=== PATIENT | female | born 1945 | race Caucasian/White ===

== ENCOUNTER → 2017-08-22 16:40 | Outpatient (CLI) | payer MEDICARE, OTHER | END | disposition home or self-care (01) | LOC: D.MAMMO 15:30 | DX: Z12.31 Encounter for screening mammogram for malignant neoplasm of breast (principal) ==

== ENCOUNTER 2018-05-15 23:39 | Emergency (ER) | payer MEDICARE, OTHER ==
[~2018-05-15] VITALS: Ht 157.5 cm; Wt 52.3 kg
[2018-05-15 23:44] VITALS: BP 190/90; Ht 157.5 cm; Wt 52.3 kg
[2018-05-15] MEDS ORDERED: RIOMET500 MG/5 M (23:46)
[2018-05-15] MEDS ORDERED: XANAX0.25 MG (23:46)
[2018-05-16] MEDS ORDERED: BACTRIM DS TABL1 TAB PO (00:40)
== END 2018-05-16 00:57 | disposition home or self-care (01) ==
LOC: D.ER 23:39
DX: S80.12XA Contusion of left lower leg, initial encounter (principal); W20.8XXA Other cause of strike by thrown, projected or falling object, initial encounter; Y93.89 Activity, other specified; Y92.019 Unspecified place in single-family (private) house as the place of occurrence of the external cause

== ENCOUNTER 2020-04-27 18:14 | Inpatient (IN) | payer MEDICARE, OTHER ==
[~2020-04-27] VITALS: Ht 157.5 cm; Wt 54.4 kg
[~2020-04-27 18:14] MED LIST: BACTRIM DS TABL1 TAB PO; RIOMET500 MG/5 M; XANAX0.25 MG
[2020-04-27 19:50] LABS: HEMATOCRIT 33.9 % (36.0-48.0); HEMOGLOBIN 10.8 g/dL (12-16); LYMPHOCYTES 20.2 % (15-50); MCH 26.3 pg (26.0-34.0); MCHC 31.9 g/dL (31.0-37.0); MCV 82.5 fL (80.0-100.0); MEAN PLATELET VOLUME 9.6 fL (7.4-10.4); NEUTROPHILS 72.7 % (40-80); RBC 4.11 10x6/uL (4.00-5.40); RDW 14.2 % (11.5-14.5); WBC 8.5 10x3/uL (4.8-10.8)
[2020-04-27 19:51] LABS: PLATELET COUNT 321 10x3/uL (130-400)
[2020-04-27 20:08] LABS: ANION GAP 12.3 mmol/L (8-16); CALCIUM 8.9 mg/dL (8.5-10.1); CARBON DIOXIDE 23.7 mmol/L (21.0-32.0); CREATININE - SERUM 0.9 mg/dL (0.6-1.3)
[2020-04-27 20:15] LABS: ALBUMIN 3.3 g/dL (3.4-5.0); BILIRUBIN - TOTAL 0.44 mg/dL (0.2-1.3); C-REACTIVE PROTEIN 6.1 mg/dL (0.0-0.9); PROTEIN - SERUM 7.7 g/dL (6.4-8.2)
[2020-04-27 21:05] LABS: ERYTHROCYTE SEDIMENTATION RATE 57 mm/hr (0-30)
[2020-04-27 23:28] VITALS: BP 164/74
[2020-04-28] VITALS (12 sets, daily range): BP systolic 128–159; BP diastolic 55–82; BMI 22.0
--- NOTE | 2020-04-28 00:05 | NUR ---
PT ARRIVED ON UNIT VIA WHEELCHAIR, ESCORTED BY ER NURSE. POSITIONED IN BED FOR COMFORT. IV TO LEFT AC PULLED OUT AND LEAKING WHEN FLUSHED...REMOVED WITH CATHETER TIP INTACT. RE-SITED TO LEFT AC USING 20 GUAGE CATHETER. IV FLUIDS STARTED AT 100 ML/HR PER ORDER.
[2020-04-28] MEDS ORDERED: METFORMIN HCL500 M1 PO (00:20)
--- NOTE | 2020-04-28 00:35 | NUR ---
ADMISSION ASSESSMENT AND HISTORY COMPLETE.
[2020-04-28 06:40] LABS: INR 1.01 (0.85-1.17); PROTIME 13.2 SECONDS (11.6-15.0)
[2020-04-28 06:43] LABS: CALC OSMOLALITY 276 mosm/kg (275-300); CALCIUM 8.4 mg/dL (8.5-10.1); CARBON DIOXIDE 24.1 mmol/L (21.0-32.0); CHLORIDE - SERUM 107 mmol/L (98-107); GLUCOSE 105 mg/dL (74-106); POTASSIUM - SERUM 3.2 mmol/L (3.5-5.1); SODIUM 139 mmol/L (136-145); UREA NITROGEN 11 mg/dL (7-18)
[2020-04-28 06:44] LABS: CREATININE - SERUM 0.6 mg/dL (0.6-1.3); eGFR NON AFRICAN AMERICAN > 90 mL/min (90-120)
[2020-04-28 06:52] LABS: HEMATOCRIT 29.9 % (36.0-48.0); HEMOGLOBIN 9.7 g/dL (12-16); MCH 26.9 pg (26.0-34.0); MCHC 32.4 g/dL (31.0-37.0); MCV 82.8 fL (80.0-100.0); MEAN PLATELET VOLUME 10.6 fL (7.4-10.4); RBC 3.61 10x6/uL (4.00-5.40); RDW 14.1 % (11.5-14.5)
[2020-04-28 07:00] LABS: PLATELET COUNT 239 10x3/uL (130-400); WBC 6.2 10x3/uL (4.8-10.8)
--- NOTE | 2020-04-28 20:00 | NUR ---
PT LYING IN BED SLEEPING WITHOUT DISTRESS, AWAKENS TO VERBAL STIMULI. DENIES PAIN OR NEEDS. VERY SLEEPY AND FALLS BACK ASLEEP QUICKLY. IV LEFT HAND INFUSING NS @ 75. RIGHT HAND PROPPED ON PILLOW, DRESSING CDI. CL IN REACH, WILL CTM
--- NOTE | 2020-04-28 23:30 | NUR ---
PT SITTING UP IN BED WITHOUT DISTRESS. WOKE UP SLIGHTLY TO DRINK SOME TEA. QUICKLY BACK ASLEEP. DENIED NEEDS. CL IN REACH, WILL CTM
[2020-04-29] VITALS: BP 132/60
--- NOTE | 2020-04-29 03:00 | NUR ---
WOKE PT UP TO TRY AND GET HER TO GO TO BATHROOM. PT STATES SHE DOES NOT NEED TO AT THIS TIME AND SHE WANTS TO SLEEP. STATES SHE WILL GET UP LATER AND GO. TOLD PT SHE NEEDED TO GO BECAUSE SHE HAS NOT BEEN UP SINCE SURGERY OR WE WILL HAVE TO IN AND OUT CATH HER. PT REFUSED AGAIN STATING SHE WOULD TRY LATER
[2020-04-29 04:00] VITALS: BP 124/55
[2020-04-29 05:47] LABS: ANION GAP 10.9 mmol/L (8-16); CALCIUM 7.7 mg/dL (8.5-10.1); CARBON DIOXIDE 22.8 mmol/L (21.0-32.0)
[2020-04-29 06:28] LABS: CREATININE - SERUM 0.9 mg/dL (0.6-1.3); POTASSIUM - SERUM 3.7 mmol/L (3.5-5.1)
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
--- NOTE | 2020-04-29 07:29 | OP ---
PATIENT NAME: AISHA GREENWOOD MEDICAL RECORD: [id number] :45 LOCATION:D.MS [facility]2218 ADMISSION DATE:04/27/20 SURGEON: NICHOLAS CARDOZO DO DATE OF OPERATION: 04/28/2020 PROCEDURE PERFORMED: Right middle finger incision and debridement. PREOPERATIVE DIAGNOSIS: Right middle finger infection. POSTOPERATIVE DIAGNOSIS: Right middle finger infection. INDICATIONS: Ms. Greenwood is a 74-year-old female who showed up to the ER last night with a swollen right middle finger. She is diabetic, did not know how it got that way. She was admitted overnight and put on IV antibiotics. I saw her today and told her she needed an I&D. I was explaining to her the risks and benefits of the procedure including infection, bleeding, damage to nerves and vessels in the area, loss of the digit and she has signed the consent. SURGEON: Nicholas Cardozo DO DESCRIPTION OF PROCEDURE: The patient was taken to the operative suite, laid in supine position, given general anesthetic, LMA was placed. The right upper extremity was then prepped and draped in sterile fashion. A time-out was performed and everyone was in agreement with the correct side, site, patient, and procedure. I made an incision over the radial aspect at the midline of the ring finger right at the PIP joint. There is a large abscess collection there. Purulent fluid came out as soon as I made the incision. I then went dorsal and volar with the [place], freed up. I then made an incision on the ulnar side more distal to open it up more and then did a Branden-type incision on the volar aspect, opening up the flexor tendon sheath to debride and irrigate all of that. All of that was irrigated. I then closed with 4-0 Monocryl in a simple fashion loosely closed and dressed with Adaptic, 4 x 4's, Kerlix, and an Heriberto wrap. I did take cultures when it was opened up. She was then awakened and taken to recovery in stable condition. I did a digital block with 8 mL of 0.25% Marcaine with epinephrine prior to closing. She was then taken to recovery in stable condition. ESTIMATED BLOOD LOSS: Minimal. COMPLICATIONS: None. NTS:[id number] Voice Confirmation ID: [id number] DOCUMENT ID: [id number] NICHOLAS CARDOZO DO at 0729 CC: [id number] DICTATION DATE: 04/28/20 1543 BRUSH HEAD MAKER: 04/28/20 2251 ADM IN [place] [id number] [place] [id number]
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
[2020-04-29 09:07] VITALS: BP 136/63
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
[2020-04-29 12:50] VITALS: BP 112/46
--- NOTE | 2020-04-29 13:00 | NUR ---
PATIENT RESTING QUIETLY IN BED EYES CLOSED. CALL LIGHT WITHIN REACH.
[2020-04-29 14:11] VITALS: Ht 157.5 cm; Wt 54.4 kg
[2020-04-29 16:45] VITALS: BP 131/64
--- NOTE | 2020-04-29 18:00 | NUR ---
PATIENT IN BED WITH IV INTACT. NO COMPLAINTS. FRIEND AT BEDSIDE. DRESSING CDI. CALL LIGHT WITHIN REACH.
[2020-04-29 20:00] VITALS: BP 131/59
--- NOTE | 2020-04-29 20:00 | NUR ---
PT SITTING UP IN BED WITHOUT DISTRESS, AOX4. FRIEND AT BEDSIDE. IV LEFT WRIST INFUSING NS @ 100. DENIES NEEDS AT THIS TIME. CL IN REACH, WILL CTM
[2020-04-30] VITALS: BP 131/55
[2020-04-30 04:00] VITALS: BP 144/55
[2020-04-30 10:31] VITALS: BP 166/65
[2020-04-30 13:20] VITALS: BP 147/72
[2020-04-30 17:38] VITALS: BP 154/54
--- NOTE | 2020-04-30 19:30 | NUR ---
PT UP WALKING AROUND ROOM. REQUESTED AND PROVIDED MORE BRIEFS. CHANGED LINENS ON BED WHILE PT WAS IN BATHROOM. RIGHT HAND MIDDLE FINGER INCISION OPEN TO AIR, SUTURES INTACT. DENIES OTHER NEEDS. CL IN REACH, WILL CTM
[2020-04-30 20:00] VITALS: BP 198/78
[2020-05-01 04:00] VITALS: BP 130/73
[2020-05-01 09:47] VITALS: BP 193/74
[2020-05-01 13:13] VITALS: BP 154/53
[2020-05-01 17:09] VITALS: BP 160/69
[2020-05-01 20:44] VITALS: BP 137/49
[2020-05-02 00:48] VITALS: BP 132/56
[2020-05-02 04:00] VITALS: BP 135/64
[2020-05-02 10:08] VITALS: BP 125/60
[2020-05-02 12:00] VITALS: BP 134/55
[2020-05-02 16:00] VITALS: BP 138/67
[2020-05-02 20:00] VITALS: BP 152/55
--- NOTE | 2020-05-02 20:00 | NUR ---
ASSUMED CARE OF PATIENT AT 1900, PATIENT AWAKE RESTING QUIETLY, NO DISTRESS NOTED, PATIENT C/O DISCOMFORT TO RIGHT MIDDLE FINGER, INCISION C/D/I, SUTURES, TIFFANY, ASSISTED PATIENT TO BR, PATIENT TOLERATED WELL, WILL CONTINUE TO MONITOR PATIENT, CALL LIGHT WITHIN REACH
[2020-05-03] VITALS: BP 140/45
[2020-05-03 04:00] VITALS: BP 165/57
[2020-05-03 05:02] LABS: BASOPHILS 0.4 % (0-2); EOSINOPHILS 6.2 % (0-7); HEMATOCRIT 27.8 % (36.0-48.0); HEMOGLOBIN 8.8 g/dL (12-16); IMMATURE GRANULOCYTES 0.6 % (0-5); LYMPHOCYTES 30.9 % (15-50); MCH 26.1 pg (26.0-34.0); MCHC 31.7 g/dL (31.0-37.0); MCV 82.5 fL (80.0-100.0); MEAN PLATELET VOLUME 9.8 fL (7.4-10.4); MONOCYTES 10.1 % (2-11); NEUTROPHILS 51.8 % (40-80); PLATELET COUNT 278 10x3/uL (130-400); RBC 3.37 10x6/uL (4.00-5.40); RDW 14.5 % (11.5-14.5); WBC 5.3 10x3/uL (4.8-10.8)
[2020-05-03 05:19] LABS: CALC OSMOLALITY 279 mosm/kg (275-300); CALCIUM 8.3 mg/dL (8.5-10.1); CARBON DIOXIDE 26.1 mmol/L (21.0-32.0); CHLORIDE - SERUM 108 mmol/L (98-107); CREATININE - SERUM 0.7 mg/dL (0.6-1.3); GLUCOSE 99 mg/dL (74-106); SODIUM 140 mmol/L (136-145); UREA NITROGEN 14 mg/dL (7-18); eGFR NON AFRICAN AMERICAN 87 mL/min (90-120)
--- NOTE | 2020-05-03 08:51 | NUR ---
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
[2020-05-03 09:04] VITALS: BP 153/55
[2020-05-03 12:00] VITALS: BP 151/58
[2020-05-03 16:00] VITALS: BP 123/94
--- NOTE | 2020-05-03 16:00 | NUR ---
SPENT MUCH OF DAY SLEEPING, CONT TO MONITOR WOUND HEALING
--- NOTE | 2020-05-03 19:25 | NUR ---
ASSUMED CARE OF PATIENT AT 1900, PATIENT RESTING QUIETLY WITH EYES OPEN, NO DISTRESS NOTED, PATIENT TALKS TO SELF, HL'D, DENIES NEEDS AT THIS TIME, WILL CONTINUE TO MONITOR PATIENT, CALL LIGHT WITHIN REACH
[2020-05-03 20:00] VITALS: BP 136/40
[2020-05-04] VITALS: BP 140/56
[2020-05-04 04:00] VITALS: BP 138/62
--- NOTE | 2020-05-04 05:37 | NUR ---
IV INFILTRATED, RESTARTED TO LEFT HAND 22G, GOOD BLOOD RETURN AND FLUSH, IV INFUSING WITHOUT COMPLICATIONS, WILL CONTINUE TO MONITOR PATIENT, CALL LIGHT WITHIN REACH
--- NOTE | 2020-05-04 07:05 | NUR ---
A&O RESTING IN BED WITH EYES OPEN. NO C/O PAIN. NO S/S OF ACUTE DISTRESS NOTED. UP AD TIKA. 10 SUTURES TO RIGHT HAND MIDDLE FINGER, OPEN TO AIR. IV TO LEFT HAND, SL. SITE PATENT WITHOUT REDNESS OR SWELLING. DENIES ANY NEEDS AT THIS TIME. CALL LIGHT IN REACH. WILL CONTINUE TO MONITOR.
[2020-05-04] MEDS ORDERED: HYDROCODON-ACE1 EA10 PO (07:36)
[2020-05-04 09:07] VITALS: BP 169/53
--- NOTE | 2020-05-04 10:59 | MORECARE ---
CASE MANAGEMENT DISCHARGE SUMMARY PATIENT: AISHA VELA UNIT: [id number] ADM DATE: 04/27/20 AGE: 74 : 45 SEX: F ROOM/BED: D.2218 AUTHOR: JAMMIE EL PHYSICIAN: REFERRING PHYSICIAN: RISA BOURNE MD DATE OF SERVICE: 05/04/20 Discharge Plan Patient Name: AISHA VELA Facility: [facility]:[place] : 1945 Planned Disposition: Home or Self Care Anticipated Discharge Date: Discharge Date: Expected LOS: Initial Reviewer: [email or web address] Initial Review Date: 04/28/2020 Generated: 05/04/20 11:59 am Comments DCP- Discharge Planning Updated by [id number]: Inna Valentine on 05/04/20 9:[address] Patient Name: AISHA VELA Admission Status: ER Accout number: [id number] Admission Date: 04-27-2020 : 1945 Admission Diagnosis:TRAUMATIC COMPARTMENT SYNDROME OF R UP EXTREM, INIT Attending: RISA BOURNE Current LOS: 7 Anticipated DC Date: Planned Disposition: Home or Self Care Primary Insurance: MEDICARE A & B Discharge Planning Comments: CM met with patient to complete initial dc planning assessment. CM educated patient on the CM role and verbal consent given by patient to complete assessment. Patient lives at home alone where she states she is independent with her care. At discharge patient plans to return home and feels this is a safe discharge. CM discussed availability of home health, rehab services, and medical equipment. She does not have a pcp, she stated that she is working on getting a new one. She did have someone living with her, but they moved out. She has a daughter Larissa who lives in [place] and will help her if needed. She stated a girl name Coco ([phone]) will be her tank truck driver home, but she can't get a hold of her at this time. She states her home is safe to discharge. IMM served and explained. Patient denied known discharge needs at this time. CM will continue to follow and will assist as needed with dc plans/needs. Compensation Vice President: Inna Valentine DCPIA - Discharge Planning Initial Assessment Updated by [email or web address]: Inna Valentine on 05/04/20 10:54 am * Is the patient Alert and Oriented? Yes * How many steps to enter\exit or inside your home? * PCP NONE * Pharmacy [facility] IN [place] * Preadmission Environment Home Alone * ADLs Independent * Equipment None * List name and contact numbers for known caregivers / representatives who currently or will assist patient after discharge: LARISSA AVITIA [phone] COCO ( BONE DENSITY TECHNICIAN) [phone] * Verbal permission to speak to the caregivers and representatives has been obtained from the patient. N/A * Community resources currently utilized None * Additional services required to return to the preadmission environment? No * Can the patient safely return to the preadmission environment? Yes * Has this patient been hospitalized within the prior 30 days at any hospital? No Coverage Notice Reviewer: [id number] - Inna Valentine Notice Issued Date-Time: 05/04/2020 10:50 Notice Type: IM Discharge Notice Notice Delivered To: Patient Relationship to Patient: Plan Manager Name: Delivery Method: HAND - Hand Delivered Pilar Days: Prior Verbal Notification: Recipient Understood Notice: Yes Recipient Signature: Yes Med Rec Note Co-signed by Attending: Coverage Notice Comment: Patient Name: AISHA VELA Page [phone] at 1059 All edits/amendments must be made on the electronic document DICTATION DATE: 05/04/20 1059 TELECOMMUNICATION OPERATOR: BERTA 05/04/20 1059 RPT#: [id number] DC DATE: STATUS: ADM IN [place] [address] [place] [address] END OF REPORT
[2020-05-04 12:34] VITALS: BP 167/54
--- NOTE | 2020-05-04 13:31 | NUR ---
I have reviewed this patient and I concur with the Shift Assessment completed by the Licensed Practical Nurse today this shift.
--- NOTE | 2020-05-04 15:37 | MORECARE ---
CASE MANAGEMENT DISCHARGE SUMMARY PATIENT: AISHA VELA UNIT: [id number] ADM DATE: 04/27/20 AGE: 74 : 45 SEX: F ROOM/BED: D.2218 AUTHOR: SIENNA,JAMMIE PHYSICIAN: REFERRING PHYSICIAN: RISA BOURNE MD DATE OF SERVICE: 05/04/20 Discharge Plan Patient Name: AISHA VELA Facility: [facility]:[place] : 1945 Planned Disposition: Home or Self Care Anticipated Discharge Date: Discharge Date: Expected LOS: Initial Reviewer: [email or web address] Initial Review Date: 04/28/2020 Generated: 05/04/20 4:37 pm Comments DCP- Discharge Planning Updated by [email or web address]: Inna Valentine on 05/04/20 2:[address] PATIENT HAS GOT AHOLD OF HER NEIGHBOR JASSON AND HE IS ON HIS WAS TO PICK HER UP SHE CAN GT INTO HER HOME DCP- Discharge Planning Updated by [email or web address]: Inna Valentine on 05/04/20 9:[address] Patient Name: AISHA VELA Admission Status: ER Accout number: [id number] Admission Date: 04-27-2020 : 1945 Admission Diagnosis:TRAUMATIC COMPARTMENT SYNDROME OF R UP EXTREM, INIT Attending: RISA BOURNE Current LOS: 7 Anticipated DC Date: Planned Disposition: Home or Self Care Primary Insurance: MEDICARE A & B Discharge Planning Comments: CM met with patient to complete initial dc planning assessment. CM educated patient on the CM role and verbal consent given by patient to complete assessment. Patient lives at home alone where she states she is independent with her care. At discharge patient plans to return home and feels this is a safe discharge. CM discussed availability of home health, rehab services, and medical equipment. She does not have a pcp, she stated that she is working on getting a new one. She did have someone living with her, but they moved out. She has a daughter Larissa who lives in [place] and will help her if needed. She stated a girl name Coco ([phone]) will be her stage driver home, but she can't get a hold of her at this time. She states her home is safe to discharge. IMM served and explained. Patient denied known discharge needs at this time. CM will continue to follow and will assist as needed with dc plans/needs. Cosmetic Chemist: Inna Valentine DCPIA - Discharge Planning Initial Assessment Updated by [id number]: Inna Valentine on 05/04/20 10:54 am * Is the patient Alert and Oriented? Yes * How many steps to enter\exit or inside your home? * PCP NONE * Pharmacy [facility] IN [place] * Preadmission Environment Home Alone * ADLs Independent * Equipment None * List name and contact numbers for known caregivers / representatives who currently or will assist patient after discharge: LARISSA AVITIA [phone] COCO ( PORTFOLIO SPECIALIST) [phone] * Verbal permission to speak to the caregivers and representatives has been obtained from the patient. N/A * Community resources currently utilized None * Additional services required to return to the preadmission environment? No * Can the patient safely return to the preadmission environment? Yes * Has this patient been hospitalized within the prior 30 days at any hospital? No Coverage Notice Reviewer: [id number] - Inna Valentine Notice Issued Date-Time: 05/04/2020 10:50 Notice Type: IM Discharge Notice Notice Delivered To: Patient Relationship to Patient: Demolition Expert Name: Delivery Method: HAND - Hand Delivered Pilar Days: Prior Verbal Notification: Recipient Understood Notice: Yes Recipient Signature: Yes Med Rec Note Co-signed by Attending: Coverage Notice Comment: Last DP export: 05/04/20 9:59 a Patient Name: AISHA VELA Page [phone] at 1537 All edits/amendments must be made on the electronic document DICTATION DATE: 05/04/20 1537 DIETARY AID: [email or web address] 05/04/20 1537 RPT#: [id number] DC DATE: STATUS: ADM IN [facility] [address] [place] [address] END OF REPORT
[2020-05-04 17:09] VITALS: BP 177/63
--- NOTE | 2020-05-04 18:03 | NUR ---
DISCHARGED PATIENT HOME WITH NEIGHBOR VIA WHEELCHAIR. DISCONTINUED IV CATHETER TIP INTACT. WENT OVER DISCHARGE PAPERWORK WITH PATIENT, VERBALIZED UNDERSTANDING. DENIES ANYTHING FURTHER.
--- NOTE | 2020-05-06 16:53 | MORECARE ---
CASE MANAGEMENT DISCHARGE SUMMARY PATIENT: AISHA VELA UNIT: [id number] ADM DATE: 04/27/20 AGE: 74 : 45 SEX: F ROOM/BED: D.2218 AUTHOR: JAMMIE EL PHYSICIAN: REFERRING PHYSICIAN: RISA BOURNE MD DATE OF SERVICE: 05/06/20 Discharge Plan Patient Name: AISHA VELA Facility: [facility]:[place] : 1945 Planned Disposition: Home or Self Care Anticipated Discharge Date: Discharge Date: 05/04/2020 Expected LOS: Initial Reviewer: [email or web address] Initial Review Date: 04/28/2020 Generated: 05/06/20 5:53 pm Comments DCP- Discharge Planning Updated by [id number]: Inna Valentine on 05/04/20 2:[address] PATIENT HAS GOT AHOLD OF HER NEIGHBOR JASSON AND HE IS ON HIS WAS TO PICK HER UP SHE CAN GT INTO HER HOME DCP- Discharge Planning Updated by [email or web address]: Inna Valentine on 05/04/20 9:[address] Patient Name: AISHA VELA Admission Status: ER Accout number: [id number] Admission Date: 04-27-2020 : 1945 Admission Diagnosis:TRAUMATIC COMPARTMENT SYNDROME OF R UP EXTREM, INIT Attending: RISA BOURNE Current LOS: 7 Anticipated DC Date: Planned Disposition: Home or Self Care Primary Insurance: MEDICARE A & B Discharge Planning Comments: CM met with patient to complete initial dc planning assessment. CM educated patient on the CM role and verbal consent given by patient to complete assessment. Patient lives at home alone where she states she is independent with her care. At discharge patient plans to return home and feels this is a safe discharge. CM discussed availability of home health, rehab services, and medical equipment. She does not have a pcp, she stated that she is working on getting a new one. She did have someone living with her, but they moved out. She has a daughter Larissa who lives in [place] and will help her if needed. She stated a girl name Coco ([phone]) will be her professional driver home, but she can't get a hold of her at this time. She states her home is safe to discharge. IMM served and explained. Patient denied known discharge needs at this time. CM will continue to follow and will assist as needed with dc plans/needs. Castings Trimmer: Inna Valentine DCPIA - Discharge Planning Initial Assessment Updated by [email or web address]: Inna Valentine on 05/04/20 10:54 am * Is the patient Alert and Oriented? Yes * How many steps to enter\exit or inside your home? * PCP NONE * Pharmacy [facility] IN [place] * Preadmission Environment Home Alone * ADLs Independent * Equipment None * List name and contact numbers for known caregivers / representatives who currently or will assist patient after discharge: LARISSA AVITIA [phone] COCO ( RECEIVING TELLER) [phone] * Verbal permission to speak to the caregivers and representatives has been obtained from the patient. N/A * Community resources currently utilized None * Additional services required to return to the preadmission environment? No * Can the patient safely return to the preadmission environment? Yes * Has this patient been hospitalized within the prior 30 days at any hospital? No Coverage Notice Reviewer: [id number] - Inna Valentine Notice Issued Date-Time: 05/04/2020 10:50 Notice Type: IM Discharge Notice Notice Delivered To: Patient Relationship to Patient: Suction Plate Carrier Cleaner Name: Delivery Method: HAND - Hand Delivered Pilar Days: Prior Verbal Notification: Recipient Understood Notice: Yes Recipient Signature: Yes Med Rec Note Co-signed by Attending: Coverage Notice Comment: Last DP export: 05/04/20 2:37 p Patient Name: AISHA VELA Page [phone] at 1653 All edits/amendments must be made on the electronic document DICTATION DATE: 05/06/201652 HORSE BREAKER: BERTA 05/06/201652 RPT#: [id number] DC DATE:05/04/20 STATUS: DIS IN [facility] [address] [facility] [place] [address] END OF REPORT
== END 2020-05-04 18:06 | disposition home or self-care (01) | DRG 906 ==
LOC: D.ER 18:14 → D.MS 22:56
PROVIDERS: Family Medicine; Orthopaedic Surgery; ADMIT Family Medicine; ATTEND Family Medicine
PROC: 0LB70ZZ Excision of Right Hand Tendon, Open Approach (ICD-10-PCS; principal; 2020-04-28 13:15)
DX: T79.A11A Traumatic compartment syndrome of right upper extremity, initial encounter (principal); L02.511 Cutaneous abscess of right hand; L03.011 Cellulitis of right finger; X58.XXXA Exposure to other specified factors, initial encounter; E87.6 Hypokalemia; E11.65 Type 2 diabetes mellitus with hyperglycemia; I10 Essential (primary) hypertension

== ENCOUNTER 2020-05-08 03:39 | Emergency (ER) | payer MEDICARE, OTHER ==
[~2020-05-08] VITALS: Ht 157.5 cm; Wt 68.2 kg
[~2020-05-08 03:39] MED LIST changes: +HYDROCODON-ACE1 EA10 PO; +METFORMIN HCL500 M1 PO
[2020-05-08 03:44] VITALS: Ht 157.5 cm; Wt 68.2 kg
[2020-05-08 04:30] VITALS: BP 109/57
== END 2020-05-08 04:30 | disposition home or self-care (01) ==
LOC: D.ER 03:39
DX: L03.011 Cellulitis of right finger (principal); F19.10 Other psychoactive substance abuse, uncomplicated; E11.9 Type 2 diabetes mellitus without complications; I10 Essential (primary) hypertension; Z79.84 Long term (current) use of oral hypoglycemic drugs; R41.82 Altered mental status, unspecified